=== PATIENT | female | born 1965 | race African-American/Black ===

== ENCOUNTER → 2021-02-05 14:45 | Outpatient (BNVA) | payer OTHER, SELFPAY | PROVIDERS: PCP Nurse Practitioner Family; Visit Provider Hospitalist | DX: J18.9 Pneumonia, unspecified organism (principal); R91.8 Other nonspecific abnormal finding of lung field; F17.200 Nicotine dependence, unspecified, uncomplicated | CPT/HCPCS: 99202 ==

== ENCOUNTER 2021-02-08 07:50 | Day surgery (SDC) | payer OTHER, SELFPAY ==
[2021-02-08] VITALS (8 sets, daily range): BP systolic 113–177; BP diastolic 70–90; PULSE 78–97; RESP 16–20; TEMP 36.2–36.3; O2SAT 94–98; BMI 35.9
--- NOTE | 2021-02-08 07:55 | HO.ANESPROP2 ---
[facility] Active Problems Active Problems: All Active Problems (Updated 02/07/21 @ 23:47 by Win Seals MD) Tobacco dependence (Acute) Lung mass (Acute) Pneumonia (Acute) Past Medical History Medical History Lung mass Pneumonia Tobacco dependence Family History Family History Other Diabetes Social History Social History Smoking Status: Current every day smoker Tobacco Type: Cigarette Packs Per Day: 1 Cigarettes Per Day: 5 Years Smoked: 1 Advance Directives: No Advance Directives Information Provided: Yes Meds Allergies Allergy/AdvReac Type Severity Reaction Status Date / Time No Known Allergies Allergy Verified 02/05/21 15:03 Home Medications Medication Instructions Recorded Confirmed Last Taken Type glipizide 10 mg tablet 10 mg PO DAILY 02/05/21 Unknown History lisinopril 10 mg tablet 10 mg PO DAILY 02/05/21 Unknown History Exam Exam Date and Time: February 08, 2021 0755 Airway Mallampati Class: II TM Dist: >3cm Neck ROM: Full Assessment and Plan Assessment Anesthesia Assessment: Anesthesia Plan Discussed and Chart Reviewed Final Anesthetic Review NPO: Yes ASA Class: II Final Preanesthetic Review: No Changes in Pt Med Stat, Meds/Allgs Chart Reviewed, Consent Obtained/Reviewed and Anes Risks/Benef Reviewed Patient Risk: Low Procedure Risk: Low Assessment/Block/Sedation in SS: Assess/Block/Sedation-SS Anesthetic Plan Anesthetic Plan: GA Disposition: Standard PACU
--- NOTE | 2021-02-08 07:58 | HO.ANESPROP2 ---
[facility] Active Problems Active Problems: All Active Problems (Updated 02/07/21 @ 23:47 by Win Seals MD) Tobacco dependence (Acute) Lung mass (Acute) Pneumonia (Acute) Past Medical History Medical History Lung mass Pneumonia Tobacco dependence Family History Family History Other Diabetes Social History Social History Smoking Status: Current every day smoker Tobacco Type: Cigarette Packs Per Day: 1 Cigarettes Per Day: 5 Years Smoked: 1 Advance Directives: No Advance Directives Information Provided: Yes Meds Allergies Allergy/AdvReac Type Severity Reaction Status Date / Time No Known Allergies Allergy Verified 02/05/21 15:03 Home Medications Medication Instructions Recorded Confirmed Last Taken Type glipizide 10 mg tablet 10 mg PO DAILY 02/05/21 Unknown History lisinopril 10 mg tablet 10 mg PO DAILY 02/05/21 Unknown History Exam Exam Date and Time: February 08, 2021 0758 Airway Mallampati Class: II TM Dist: >3cm Neck ROM: Full Assessment and Plan Assessment Anesthesia Assessment: Anesthesia Plan Discussed and Chart Reviewed Final Anesthetic Review NPO: Yes ASA Class: II Final Preanesthetic Review: No Changes in Pt Med Stat, Meds/Allgs Chart Reviewed, Consent Obtained/Reviewed and Anes Risks/Benef Reviewed Patient Risk: Low Procedure Risk: Low Assessment/Block/Sedation in SS: Assess/Block/Sedation-SS Anesthetic Plan Anesthetic Plan: GA Disposition: Standard PACU
--- NOTE | 2021-02-08 08:18 | MHC.SHP ---
Pre-Procedural Eval Section B Chief Complaint: pneumonia Allergies: Allergies Allergy/AdvReac Type Severity Reaction Status Date / Time No Known Allergies Allergy Verified 02/05/21 15:03 Plan I have reviewed the history and physical and performed a pertinent physical examination on my patient. No changes have occurred unless specified.
[2021-02-08] MEDS: Lactated Ringers 1,000 ML 20 ML IVCONT (08:25)
[2021-02-08 08:27] LABS: Glucose, Whole Blood 168 mg/dL (60-115)
[2021-02-08] MEDS: Albuterol Sulfate (0.083%) 2.5 MG/3 ML VIAL.NEB INHALE (10:23)
--- NOTE | 2021-02-08 11:17 | PC.NURSE ---
110 MONIOTRS AND IVF DC ASST OOB CH STEADY IV DCD DRESSED SELF AT BS CALL ARCHER IN REACH
--- NOTE | 2021-02-08 20:51 | P.BOP_ITS ---
Brief Operative Note Date of Service: 02/08/21 Pre-op diagnosis: lung mass, pneuomonia Post-op diagnosis: same Procedure: EBUS with TBNA, bronchoscopy with RLL endobronchial biopsies and brushings Surgeon: Win Seals MD Anesthesia: GETA Was an Sales Development Associate used for this Procedure?: No Estimated blood loss (mL): 5 Pathology: other (TBNA 4R, RLL mass, RLL endobronchial biopsies) Condition: stable Disposition: same day
--- NOTE | 2021-02-08 22:55 | OP_ITS ---
SURGEON: Win Seals MD INDICATIONS: Lung mass and pneumonia. PREOPERATIVE DIAGNOSIS: POSTOPERATIVE DIAGNOSIS: PROCEDURE PERFORMED: Endobronchial ultrasound bronchoscopy with transbronchial needle aspiration and bronchoscopy with biopsy. ESTIMATED BLOOD LOSS: COMPLICATIONS: ANESTHESIA: General endotracheal anesthesia. ASSISTANTS: SPECIMENS: PREOPERATIVE DIAGNOSES: Lung mass and pneumonia. POSTOPERATIVE DIAGNOSES: Lung mass and pneumonia. DESCRIPTION OF PROCEDURE: After the patient was adequately sedated and intubated, the flexible digital bronchoscope with endobronchial ultrasound bronchoscopy. EBUS was introduced via the ET tube to the level of the main an. After instilling some additional lidocaine, the bronchoscope was navigated to the entire tracheobronchial tree. Using the ultrasound guidance, the patient did have small shotty 4R lymph node measuring around 6 to 7 mm in size. No significant subcarinal lymph node noted. No significant 4L or left paratracheal lymph node noted, and no significant station 11R lymph node noted. Using the EBUS, the bronchoscope was navigated to the station 4R lymph node and transbronchial needle aspirations were attempted x2. Specimen given to pathologist and also for cell block. No malignancy demonstrated. EBUS bronchoscope was then brought to the level of the right lower lobe, where the abnormal endobronchial mucosa was located and where the mass was located. Masslike density was visualized. Transbronchial needle aspirations of the right lower lobe masslike density were collected and multiple passes were done approximately 6 and specimens were given to pathology. Atypical cells demonstrated, but will need additional molecular staining. The EBUS bronchoscope was then removed. The regular bronchoscopy was inserted via the ET tube to the level of the main an. Tracheobronchial tree examined to the subsegmental level. Again, the patient did have localized abnormal fungating mucosa with neovascularization and raised irregular borders primarily in the right lower lobe, proximally involving the anterolateral and posterior segments. The abnormal mucosa was well demarcated. Using a cytologic brush, it was introduced into the posterior segment of the right lower lobe and specimens were sent to cytology solution. Using forceps, endobronchial right lower lobe biopsies were collected at the area of the abnormal mucosa. Some bleeding was noted. Five specimens were collected and sent in formalin to pathology. After the biopsies were completed, the patient received 1/2 ampule 1:1000 epinephrine with good hemostasis. Bronchial washings were also collected for cytology and microbiology. Also important to mention that the posterior segment and to some degree lateral segment of the right lower lobe appeared to be intrinsically and also extrinsically obstructed by this fungating masslike density concerning for the possibility of a postobstructive pneumonia. No significant secretions or pus or exudate of secretions were able to be suctioned from the obstructed airways. The bronchoscope was then removed. The total endoscopic time approximately 45 minutes. The patient tolerated the procedure well. Vital signs were stable. INTERPRETATION: 1. EBUS transbronchial needle aspirations of station 4R and also the right lower lobe mass. No significant lymphadenopathy in station 4L or station 7 or station 11R. 2. Cytologic brushings from the right lower lobe. 3. Endobronchial biopsies from the right lower lobe. 4. Bronchial washings from the right lower lobe. MD NAVARRO Ariza/NAVID / [id number] MTDD
== END 2021-02-08 11:30 | disposition home or self-care (01) ==
PROVIDERS: Visit Provider Hospitalist
PROC: (CPT 31652; principal; 2021-02-08 08:30)
DX: J18.9 Pneumonia, unspecified organism (principal); R91.8 Other nonspecific abnormal finding of lung field; F17.210 Nicotine dependence, cigarettes, uncomplicated; R09.89 Other specified symptoms and signs involving the circulatory and respiratory systems; I10 Essential (primary) hypertension; E11.9 Type 2 diabetes mellitus without complications; Z79.899 Other long term (current) drug therapy; Z79.84 Long term (current) use of oral hypoglycemic drugs
CPT/HCPCS: 31652; 31625; 31623; 82947; 87071; 87102; 87205; 88112; 88172; 88173; 88177; 88305; 94640; J0171; J1100; J2250; J2405; J3010

== ENCOUNTER → 2021-02-12 09:15 | Outpatient (BNVA) | payer OTHER, SELFPAY | PROVIDERS: PCP Nurse Practitioner Family; Visit Provider Surgery | DX: R91.8 Other nonspecific abnormal finding of lung field (principal); F17.210 Nicotine dependence, cigarettes, uncomplicated; Z79.899 Other long term (current) drug therapy | CPT/HCPCS: 99212 ==

== ENCOUNTER 2021-02-17 08:01 | Outpatient (REF) | payer OTHER, SELFPAY ==
--- NOTE | ~2021-02-17 | MR_ITS ---
EXAMINATION: MR BRAIN WITHOUT AND WITH CONTRAST CLINICAL INFORMATION: History of lung cancer. COMPARISON: None TECHNIQUE: Multiplanar, multisequence MRI of the brain was obtained before and after the intravenous administration of 8.5 mL of Gadavist. FINDINGS: Patchy and confluent subcortical, periventricular and deep white matter T2 prolongation is present, without associated mass effect, restricted diffusion or enhancement. No focal reduced diffusion is seen to suggest acute or subacute cerebral ischemia. No intracranial mass, intracerebral edema, intra-axial blood products, midline shift, or extra-axial collection is visualized. No pathologic enhancement is appreciated on postcontrast sequences. The ventricles and sulcal spaces appear normal. Normal arterial and venous vascular flow voids are present. Mild mucosal thickening present within the anterior ethmoid air cells. MR/MR head/brain wo/w con IMPRESSION: * No evidence of intracranial metastatic disease. * Patchy and confluent, predominantly supratentorial white matter signal abnormality is nonspecific. This can be seen in association with chronic small vessel ischemic disease and demyelinating disease among other etiologies.
[2021-02-17 07:58] LABS: Blood Urea Nitrogen 13 mg/dL (9-16); Estimated Glomerular Filt Rate > 60
== END 2021-02-17 08:02 | disposition home or self-care (01) ==
LOC: HO.MRI 08:01
PROVIDERS: Visit Provider Surgery
DX: R91.8 Other nonspecific abnormal finding of lung field (principal); C79.9 Secondary malignant neoplasm of unspecified site
CPT/HCPCS: 36415; 70553; 82565; 84520; A9585

== ENCOUNTER 2021-02-17 14:46 | Outpatient (REF) | payer OTHER, SELFPAY ==
--- NOTE | 2021-02-17 15:44 | PFT_ITS ---
FLOWS: FEV1 of 121% of predicted at 1.93 L. FVC 109% of predicted at 2.21 L. FEV1 to FVC ratio of 0.88. No bronchodilator response. LUNG VOLUMES: The patient was unable to complete lung volumes maneuver secondary to a congested cough. Diffusion capacity is normal. IMPRESSION: No obstructive ventilatory defect. The patient was unable to complete lung volume maneuver secondary to a congested cough. MD CHRIS Hilario/MODL / [id number]
== END 2021-02-17 14:47 | disposition home or self-care (01) ==
LOC: HO.RESP 14:46
PROVIDERS: Visit Provider Surgery
DX: R91.8 Other nonspecific abnormal finding of lung field (principal)
CPT/HCPCS: 94060; 94729

== ENCOUNTER → 2021-02-24 09:22 | Outpatient (BNVA) | payer OTHER, SELFPAY | PROVIDERS: PCP Nurse Practitioner Family; Visit Provider Hospitalist | DX: R91.8 Other nonspecific abnormal finding of lung field (principal); J18.9 Pneumonia, unspecified organism; J90 Pleural effusion, not elsewhere classified | CPT/HCPCS: 99212 ==

== ENCOUNTER → 2021-02-26 08:48 | Outpatient (BNVA) | payer OTHER, SELFPAY | PROVIDERS: PCP Nurse Practitioner Family; Visit Provider Surgery | DX: R91.1 Solitary pulmonary nodule (principal); J18.9 Pneumonia, unspecified organism; F17.210 Nicotine dependence, cigarettes, uncomplicated; Z79.899 Other long term (current) drug therapy | CPT/HCPCS: 99212 ==

== ENCOUNTER 2021-05-19 08:00 | Outpatient (REF) | payer OTHER, SELFPAY ==
--- NOTE | ~2021-05-19 | CT_ITS ---
EXAMINATION: CT CHEST WITH CONTRAST CLINICAL INFORMATION: Lung cancer COMPARISON: Previous chest CT scan and x-ray December 2020 TECHNIQUE: Multidetector volumetric CT imaging of the chest was obtained after the administration of 65 mL of Omnipaque 350 intravenous contrast without immediate adverse reactions. Axial MIP volume rendering provided. Sagittal and coronal reformatted images were obtained. This CT examination was performed using dose optimization techniques as appropriate, variously including the following: *Automated exposure control *Adjustment of mA and/or kV according to patient size (this includes techniques or standardized protocols for targeted exams where dose is matched to indication/reason for exam; i.e. extremities or head) *Use of iterative reconstruction technique DLP: 120 mGy-cm FINDINGS: LUNGS: There are postsurgical changes to the right hemithorax following right lower lobe lobectomy. There is scarring or subsegmental atelectasis in the right middle lobe and lingula. The lungs are otherwise clear. MEDIASTINUM: There is low-attenuation soft tissue seen in the right infrahilar region adjacent to surgical clips. It is uncertain whether this represents postsurgical change or tracking pleural fluid or could represent an lymphadenopathy No other evidence of hilar or mediastinal lymphadenopathy is seen. The heart does not appear enlarged. There is mild coronary artery calcification. The thoracic aorta is normal in caliber. The thyroid gland is normal. The esophagus is normal. PLEURA: There is a small right pleural effusion. There is no right pneumothorax. There is no left pleural effusion. AXILLA: There are no enlarged axillary lymph nodes. There is no chest wall mass. UPPER ABDOMEN: The liver is low in attenuation suggestive of fatty infiltration. OSSEOUS STRUCTURES: There are postsurgical changes to the right lateral ribs. Bony structures are otherwise unremarkable. CT/CT chest w con IMPRESSION: New postsurgical changes following right lower lobe lobectomy. There is increased low-attenuation soft tissue in the right infrahilar region adjacent to surgical clips. It is uncertain whether this represents postsurgical change, pleural fluid or could represent lymphadenopathy. Small right pleural effusion.
[2021-05-19] MEDS: iohexoL 350 MG/ML 100 ML INFUS..BTL IV (08:56)
== END 2021-05-19 08:01 | disposition home or self-care (01) ==
LOC: HO.CT 08:00
PROVIDERS: PCP Nurse Practitioner Family; Visit Provider Internal Medicine Medical Oncology
DX: C34.90 Malignant neoplasm of unspecified part of unspecified bronchus or lung (principal)
CPT/HCPCS: 71260; Q9967

== ENCOUNTER 2021-07-06 13:03 | Outpatient (REF) | payer OTHER, SELFPAY ==
--- NOTE | ~2021-07-06 | CT_ITS ---
EXAMINATION: CT CHEST WITH CONTRAST CLINICAL INFORMATION: Abnormal lung davis. Vascularity of lung cancer COMPARISON: 05/19/2021 TECHNIQUE: Multidetector volumetric CT imaging of the chest was obtained after the administration of 65 mL of Omnipaque 350 intravenous contrast without immediate adverse reactions. Axial MIP volume rendering provided. Sagittal and coronal reformatted images were obtained. This CT examination was performed using dose optimization techniques as appropriate, variously including the following: *Automated exposure control *Adjustment of mA and/or kV according to patient size (this includes techniques or standardized protocols for targeted exams where dose is matched to indication/reason for exam; i.e. extremities or head) *Use of iterative reconstruction technique DLP: 120 mGy-cm FINDINGS: COCOA BUTTER FILTER OPERATOR: Hypoexpanded LUNGS: The lungs are well-expanded with platelike atelectasis left upper lobe, left lower lobe and right middle lobe. There are postsurgical changes right hemithorax following wedge resection or lobectomy. No recurrent mass or nodule visualized. MEDIASTINUM: The thyroid lobes are symmetric and normal. The central trachea and the bronchi widely patent. Heart size and the great vessels are normal caliber. There are coronary artery calcifications. There is no pericardial effusion. No abnormal size mediastinal or hilar lymph nodes seen. PLEURA: There is a small right pleural effusion or thickening, similar to previous study. AXILLA: No lymphadenopathy. UPPER ABDOMEN: The liver is diffusely attenuated without focal lesion. Pancreas and bilateral adrenal glands are unremarkable. No radiopaque gallstone seen. OSSEOUS STRUCTURES: No lytic or sclerotic process seen. CT/CT chest w con IMPRESSION: Postsurgical changes right hemithorax with no recurrent mass or nodule. Small right pleural effusion or thickening is stable. There are atelectatic changes left upper lobe, left lower lobe and right middle lobe.
[2021-07-06] MEDS: iohexoL 350 MG/ML 100 ML INFUS..BTL IV (14:53)
== END 2021-07-06 13:04 | disposition home or self-care (01) ==
LOC: HO.CT 13:03
PROVIDERS: PCP Nurse Practitioner Family; Visit Provider Surgery
DX: R91.8 Other nonspecific abnormal finding of lung field (principal); C34.90 Malignant neoplasm of unspecified part of unspecified bronchus or lung
CPT/HCPCS: 71260; Q9967

== ENCOUNTER → 2021-07-09 10:13 | Outpatient (BNVA) | payer OTHER, SELFPAY | PROVIDERS: PCP Nurse Practitioner Family; Visit Provider Surgery | DX: C34.90 Malignant neoplasm of unspecified part of unspecified bronchus or lung (principal); G89.12 Acute post-thoracotomy pain; Z79.899 Other long term (current) drug therapy; Z79.891 Long term (current) use of opiate analgesic; Z90.2 Acquired absence of lung [part of]; Z87.891 Personal history of nicotine dependence | CPT/HCPCS: 99212 ==

== ENCOUNTER 2021-12-27 13:30 | Outpatient (REF) | payer OTHER, SELFPAY ==
--- NOTE | ~2021-12-27 | CT_ITS ---
EXAMINATION: CT CHEST WITH CONTRAST CLINICAL INFORMATION: Lung cancer restaging. COMPARISON: CT chest 07/06/2021 and 05/19/2021. TECHNIQUE: Multidetector volumetric CT imaging of the chest was obtained after the administration of 65 mL of Omnipaque 350 intravenous contrast without immediate adverse reactions. Axial MIP volume rendering provided. Sagittal and coronal reformatted images were obtained. This CT examination was performed using dose optimization techniques as appropriate, variously including the following: *Automated exposure control *Adjustment of mA and/or kV according to patient size (this includes techniques or standardized protocols for targeted exams where dose is matched to indication/reason for exam; i.e. extremities or head) *Use of iterative reconstruction technique DLP: 137 mGy-cm FINDINGS: SLOTTER OPERATOR: There is an elevated right hemidiaphragm with plate-like atelectasis. LUNGS: There is right lung wedge resection or partial lobectomy changes. There is a new right upper lobe 5 mm nodule axial image 56/5, a 4 mm nodule right upper lobe perivascular axial image 55/5 and a 4 nodule right middle lobe axial image 83/5. The largest nodule is a 7 mm nodule right middle lobe adjacent to the hemidiaphragm axial image 73/5. There are 2 nodules in the left lower lobe measuring 4 mm axial image 89/5 and a 6 mm nodule axial image 96/5. No acute consolidation or mass seen. MEDIASTINUM: The thyroid lobes are symmetrical and normal. The central trachea and the bronchi are widely patent. Heart size and the great vessels are normal. Small shotty right pretracheal lymph node is seen. No pericardial effusion. There are coronary artery calcifications. PLEURA: There is no pleural effusion. No pleural mass or thickening. AXILLA: Small shotty bilateral axillary lymph nodes are seen. UPPER ABDOMEN: Visualized liver, spleen, pancreas and bilateral adrenal glands are unremarkable. There are no radiopaque gallstones. OSSEOUS STRUCTURES: No lytic or sclerotic process seen. Right posterior 5th and 6th rib postsurgical changes. CT/CT chest w con IMPRESSION: Multiple bilateral pulmonary nodules, new since the last exam 07/06/2021. Postsurgical changes right lung. No abnormal mediastinal or axillary lymphadenopathy seen. Normal adrenal glands. Fleischner guidelines were followed.
[2021-12-27 13:47] LABS: MANUAL DIFF FLAG NO
[2021-12-27 14:25] LABS: Basophils Percent Auto 0.6 % (0-2); Eosinophils Percent Auto 0.5 % (0-4); Hematocrit 43.2 % (37.0-47.0); Lymphocytes Absolute Auto 3.6 X10*3/uL (1.2-4.9); Lymphocytes Percent Auto 54.5 % (20-40); Mean Corpuscular HGB Conc 32.4 g/dl (31.0-35.0); Mean Corpuscular Hemoglobin 29.6 pg (27.0-33.0); Mean Corpuscular Volume 91.3 fL (80.0-98.0); Mean Platelet Volume 9.2 fL (9.4-12.3); Monocytes Absolute Auto 0.3 X10*3/uL (0.1-1.2); Neutrophils Absolute Auto 2.6 x10*3/uL (2.0-8.3); Neutrophils Percent Auto 39.4 % (45-73); Platelet Count 299 X10*3/uL (160-400); Red Blood Count 4.73 X10*6/uL (4.20-5.50); Red Cell Distribution Width 12.3 % (11.0-16.0); White Blood Count 6.6 X10*3/uL (4.8-10.8)
[2021-12-27 14:59] LABS: Alanine Aminotransferase 30 U/L (0-31); Albumin Level 4.6 g/dL (3.5-5.0); Alkaline Phosphatase 72 U/L (39-117); Anion Gap 16 (12-20); Aspartate Amino Transferase 21 U/L (5-31); Bilirubin Total < 0.2 mg/dL (0.0-1.0); Blood Urea Nitrogen 14 mg/dL (9-16); Calcium 9.6 mg/dL (8.4-10.2); Carbon Dioxide 23 mmol/L (22-29); Chloride 104 mmol/L (96-108); Estimated Glomerular Filt Rate > 60; Glucose Random 126 mg/dL (60-115); Potassium 4.5 mmol/L (3.3-5.1); Sodium 138 mmol/L (135-145); Total Protein 7.6 g/dL (6.5-8.0)
[2021-12-27] MEDS: iohexoL 350 MG/ML 100 ML INFUS..BTL IV (15:27)
== END 2021-12-27 13:31 | disposition home or self-care (01) ==
LOC: HO.CT 13:30
PROVIDERS: PCP Nurse Practitioner Family; Visit Provider Internal Medicine Medical Oncology
DX: C34.90 Malignant neoplasm of unspecified part of unspecified bronchus or lung (principal)
CPT/HCPCS: 36415; 71260; 80053; 85025; Q9967

== ENCOUNTER → 2022-02-01 14:29 | Outpatient (BNVA) | payer OTHER, SELFPAY | PROVIDERS: PCP Nurse Practitioner Family; Visit Provider Hospitalist | DX: C34.91 Malignant neoplasm of unspecified part of right bronchus or lung (principal); R91.8 Other nonspecific abnormal finding of lung field; G89.12 Acute post-thoracotomy pain | CPT/HCPCS: 99212 ==

== ENCOUNTER 2022-02-16 09:31 | Outpatient (REF) | payer OTHER, SELFPAY ==
--- NOTE | ~2022-02-16 | CT_ITS ---
EXAMINATION: CT CHEST WITHOUT CONTRAST CLINICAL INFORMATION: Follow up lung nodules seen on previous study. COMPARISON: 12/27/2021 and 07/06/2021. TECHNIQUE: Multidetector volumetric CT imaging of the chest was done. Axial MIP volume rendering provided. Sagittal and coronal reformatted images were obtained. This CT examination was performed using dose optimization techniques as appropriate, variously including the following: *Automated exposure control *Adjustment of mA and/or kV according to patient size (this includes techniques or standardized protocols for targeted exams where dose is matched to indication/reason for exam; i.e. extremities or head) *Use of iterative reconstruction technique DLP: 133.8 mGy-cm FINDINGS: PARKING LOT SPOTTER: Unremarkable. LUNGS: There are numerous growing ill-defined lung nodules such as on the right fissure-based 0.8 x 0.9 cm nodule surrounded by ground-glass opacity on image 19 series 3, 0.7 x 0.6 cm nodule surrounded by ground-glass opacity in the right middle lobe on image 26 series 3, 1.4 x 1.0 cm nodule in the right lower lobe on image 26 series 3, inseparable from linear scarring, punctate nodule in the right middle lobe on image 28, linear scarring in the right middle lobe on image 28, on the left there is 0.7 x 0.8 and 0.7 x 1.3 cm nodule in the left lower lobe. All these nodules are growing since previous study or new. MEDIASTINUM: There is no mediastinal lymphadenopathy PLEURA: There is no pleural effusion. No pleural mass or thickening. AXILLA: Unremarkable. UPPER ABDOMEN: Unremarkable. OSSEOUS STRUCTURES: There are postsurgical changes in the posterior aspect of ribs #5 and [address]/CT chest wo con IMPRESSION: Multiple growing lung nodules bilaterally. Correlate with PET/CT. Fleischner guidelines were followed.
== END 2022-02-16 09:32 | disposition home or self-care (01) ==
LOC: HO.CT 09:31
PROVIDERS: PCP Nurse Practitioner Family; Visit Provider Hospitalist
DX: R91.8 Other nonspecific abnormal finding of lung field (principal); C34.90 Malignant neoplasm of unspecified part of unspecified bronchus or lung
CPT/HCPCS: 71250

== ENCOUNTER 2022-03-18 12:57 | Outpatient (REF) | payer OTHER, SELFPAY ==
[2022-03-18 14:02] LABS: Blood Urea Nitrogen 18 mg/dL (9-16); Estimated Glomerular Filt Rate > 60
== END 2022-03-18 12:58 | disposition home or self-care (01) ==
LOC: HO.LAB 12:57
PROVIDERS: PCP Nurse Practitioner Family; Visit Provider Internal Medicine Medical Oncology
DX: C34.90 Malignant neoplasm of unspecified part of unspecified bronchus or lung (principal)
CPT/HCPCS: 36415; 82565; 84520

== ENCOUNTER 2022-03-24 08:41 | Day surgery (SDC) | payer OTHER, SELFPAY ==
[2022-03-24] VITALS (11 sets, daily range): BP systolic 132–159; BP diastolic 54–93; PULSE 72–96; RESP 16–20; TEMP 36.4–36.8; O2SAT 97–99; BMI 34.9
--- NOTE | ~2022-03-24 | CT_ITS ---
PROCEDURE: CT GUIDED BIOPSY, LUNG CLINICAL INFORMATION: Increasing size of lung nodules. COMPARISON: CT chest 02/16/2022, 12/27/2021 and 07/06/2021. TECHNIQUE: Following explaining CT fluoroscopy-guided right lower lobe nodule biopsy procedure, benefits and risks, a written consent was obtained. The patient was placed in the left lateral decubitus view and preliminary CT imaging was obtained following placement of lead markers. An optimal lead marker on the skin was selected and the skin was marked. The marked site was cleaned and draped in the usual sterile manner. 1% lidocaine was injected at the puncture site. Through a small skin incision a 22-gauge guide needle was advanced from the skin to the level of parietal pleura. Coaxially a 22-gauge 15 cm lung biopsy gun was administered and a 3 pass biopsy was obtained. Postprocedure the guide needles were withdrawn and complete hemostasis was achieved at the puncture site. Repeat CT imaging was obtained and revealed no pneumothorax. A sterile dressing was applied postprocedure. Conscious sedation was administered with 2 mg of versed and 50 mcg of fentanyl. The patient was monitored by IR nursing and the radiologist during the entire exam. This CT examination was performed using dose optimization techniques as appropriate, variously including the following: *Automated exposure control *Adjustment of mA and/or kV according to patient size (this includes techniques or standardized protocols for targeted exams where dose is matched to indication/reason for exam; i.e. extremities or head) *Use of iterative reconstruction technique DLP: 972 mGy-cm FINDINGS: On preliminary CT imaging in the left lateral decubitus view there is a 1.4 cm nodule in right lower lobe adjacent to the right hemidiaphragm. CT fluoroscopy-guided 3 pass core biopsy was performed of this right lower lobe 1.4 cm nodule. Preliminary pathology reading revealed abnormal cells within the biopsies. Sample was sent in alcohol solution and on saline solution. CT/CT biopsy lung RT IMPRESSION: Preliminary CT reveals a 1.4 cm nodule of the right lower lobe adjacent to the right hemidiaphragm lateral basal segment. Successful CT fluoroscopy-guided right lateral basal segment nodule biopsy.
--- NOTE | ~2022-03-24 | XR_ITS ---
EXAMINATION: XR CHEST CLINICAL INFORMATION: Post right lower lobe lung biopsy. Evaluate for pneumothorax. COMPARISON: CT chest 02/16/2022 TECHNIQUE: Inspiration and expiration views of the chest were obtained. FINDINGS: The lungs are hypoexpanded with bandlike atelectasis or scarring right lower lobe. There is also right lower lobe lateral pleural thickening. Rest of the right and left lungs are clear. There is slight loss of right lung volume likely from previous surgery. There is no visible pneumothorax seen. Heart size and progress clarities normal. No gross bony abnormality seen. XR/XR chest 2V IMPRESSION: Loss of right lung volume with postsurgical changes. There is thick scar or atelectasis right lower lobe and mild right lateral pleural thickening. There is no evidence of pneumothorax.
[2022-03-24 09:14] LABS: Glucose, Whole Blood 218 mg/dL (60-115)
[2022-03-24 09:39] LABS: MANUAL DIFF FLAG NO
[2022-03-24 09:46] LABS: Basophils Percent Auto 0.5 % (0-2); Eosinophils Absolute Auto 0.1 X10*3/uL (0.0-0.4); Eosinophils Percent Auto 0.7 % (0-4); Hemoglobin 14.2 g/dl (12.0-16.0); Imm Gran Abs Auto 0.01 X10*3/uL (0.00-0.03); Imm Gran Pct Auto 0.1 % (0.0-0.4); Lymphocytes Percent Auto 55.1 % (20-40); Mean Corpuscular HGB Conc 33.8 g/dl (31.0-35.0); Mean Corpuscular Hemoglobin 29.4 pg (27.0-33.0); Mean Platelet Volume 9.2 fL (9.4-12.3); Monocytes Absolute Auto 0.4 X10*3/uL (0.1-1.2); Monocytes Percent Auto 4.9 % (2-11); Neutrophils Absolute Auto 2.8 x10*3/uL (2.0-8.3); Neutrophils Percent Auto 38.7 % (45-73); Platelet Count 338 X10*3/uL (160-400); Red Blood Count 4.83 X10*6/uL (4.20-5.50); Red Cell Distribution Width 11.9 % (11.0-16.0); White Blood Count 7.3 X10*3/uL (4.8-10.8)
[2022-03-24 09:51] LABS: INTERNATIONAL NORM RATIO 0.9 (0.9-1.1); Prothrombin Time 10.8 SEC (10.0-13.1)
[2022-03-24 09:54] LABS: Partial Thromboplastin Time 31.9 SEC (24.1-38.0)
[2022-03-24] MEDS: Acetaminophen 325 MG TABLET 650 MG PO (15:22)
[2022-03-24] MEDS: oxyCODONE HCl Immed Release 5 MG TABLET PO (15:22)
== END 2022-03-24 15:57 | disposition home or self-care (01) ==
PROVIDERS: Radiology Diagnostic Radiology; PCP Nurse Practitioner Family; Visit Provider Radiology Diagnostic Radiology
DX: C34.31 Malignant neoplasm of lower lobe, right bronchus or lung (principal); Z85.118 Personal history of other malignant neoplasm of bronchus and lung; Z90.2 Acquired absence of lung [part of]; J18.9 Pneumonia, unspecified organism; J90 Pleural effusion, not elsewhere classified; F17.210 Nicotine dependence, cigarettes, uncomplicated; I10 Essential (primary) hypertension; E11.9 Type 2 diabetes mellitus without complications; Z79.84 Long term (current) use of oral hypoglycemic drugs; Z79.899 Other long term (current) drug therapy
CPT/HCPCS: 32408; 36415; 71046; 82947; 85025; 85610; 85730; 88305; 88333; 99152; 99153; J1100; J2250; J3010

== ENCOUNTER → 2022-04-12 09:57 | Outpatient (BNVA) | payer OTHER, SELFPAY | PROVIDERS: PCP Family Medicine; Visit Provider Hospitalist | DX: C34.90 Malignant neoplasm of unspecified part of unspecified bronchus or lung (principal); G89.12 Acute post-thoracotomy pain; R91.8 Other nonspecific abnormal finding of lung field | CPT/HCPCS: 99212 ==